=== PATIENT | female | born 1960 | race Caucasian/White ===

== ENCOUNTER 2018-08-08 10:15 | Outpatient (RCR) | payer MEDICAID | END 2018-08-08 11:00 | disposition home or self-care (01) | LOC: PT 10:15 | DX: M54.5 Low back pain (principal) ==

== ENCOUNTER 2018-12-06 08:29 | Inpatient (IN) | payer MEDICAID ==
[~2018-12-06] VITALS: Ht 152.4 cm; Wt 164.0 kg
[2018-12-06 09:38] LABS: EOS # 0.2 (0.04-0.40); EOS % 1.8 % (1.0-5.0); HEMATOCRIT 35.2 % (37.0-47.0); HEMOGLOBIN 10.1 g/dL (12.5-16.0); LYMPH# 1.9 (1.50-4.00); MEAN CELL VOLUME 89 fl (78-100); MEAN CORPUSCULAR HEMOGLOBIN 26 pg (27-31); MEAN PLATELET VOLUME 10.5 fl (7.4-10.4); MONO # 0.8 (0.20-0.80); PLATELET COUNT 305 K/mm3 (130-400); RED BLOOD COUNT 3.94 M/mm3 (4.10-5.30); RED CELL DISTRIBUTION WIDTH 17.2 % (11.5-14.5); WHITE BLOOD COUNT 12.3 K/mm3 (4.8-10.8)
[2018-12-06 09:40] LABS: CALCIUM 8.7 mg/dL (8.4-10.2); TOTAL PROTEIN 7.5 g/dL (6.3-8.2)
[2018-12-06 09:41] LABS: ALBUMIN 3.9 g/dL (3.5-5.0); TOTAL BILIRUBIN 0.3 mg/dL (0.2-1.3)
[2018-12-06 09:42] LABS: MEAN CORPUSCULAR HGB CONC 29 g/dL (33-37); NEU # 9.3 (1.40-6.50)
[2018-12-06 09:45] LABS: D-DIMER 0.18 mg/L FEU (0.15-0.50)
[2018-12-06 09:46] LABS: TROPONIN-I 0.01 ng/mL (0.00-0.06)
[2018-12-06 10:37] LABS: URINE APPEARANCE HAZY; URINE COLOR YELLOW
[2018-12-06 10:38] LABS: URINE BILIRUBIN NEGATIVE (NEGATIVE); URINE BLOOD NEGATIVE (NEGATIVE); URINE GLUCOSE NEGATIVE (NEGATIVE); URINE KETONE NEGATIVE (NEGATIVE); URINE LEUKOCYTE ESTERASE NEGATIVE (NEGATIVE); URINE NITRATE NEGATIVE (NEGATIVE); URINE PROTEIN(semi-quant) TRACE mg/dL (NEGATIVE); URINE UROBILINOGEN NORMAL (NORMAL)
[2018-12-06] MEDS ORDERED: WELLBUTRIN XL300 M1 PO (10:52)
[2018-12-06] MEDS ORDERED: ZOLPIDEM TART10 MG PO (10:52)
[2018-12-06] MEDS ORDERED: GLUCOPHAGE PO (10:53)
[2018-12-06] MEDS ORDERED: KLONOPIN 0.5MG0.5 MG PO (10:53)
[2018-12-06] MEDS ORDERED: QUETIAPINE FUM100 M1 PO (10:53)
[2018-12-06] MEDS ORDERED: LIOTHYRONINE SO5 MCG PO (10:53)
[2018-12-06] MEDS ORDERED: DULOXETINE60 MG PO (10:54)
[2018-12-06 18:59] VITALS: BP 143/85
[2018-12-06 23:30] VITALS: BP 144/86
[2018-12-07 03:03] VITALS: BP 132/93
[2018-12-07 06:24] VITALS: BP 115/71
[2018-12-07 11:18] VITALS: BP 124/82
[2018-12-07 15:33] VITALS: BP 120/76
[2018-12-07 17:57] LABS: CALCIUM 8.7 mg/dL (8.4-10.2); POTASSIUM 3.7 mmol/L (3.6-5.0)
[2018-12-07 18:31] VITALS: BP 135/78
[2018-12-07 22:54] VITALS: BP 137/82
[2018-12-08 03:30] VITALS: BP 125/78
[2018-12-08 06:10] VITALS: BP 128/81
[2018-12-08 11:02] VITALS: BP 145/82
[2018-12-08 15:16] VITALS: BP 154/77
[2018-12-08 18:24] VITALS: BP 130/68
[2018-12-08 22:36] VITALS: BP 116/68
[2018-12-09 02:37] VITALS: BP 147/89
[2018-12-09 06:20] VITALS: BP 127/72
[2018-12-09 07:24] LABS: ALBUMIN 4.1 g/dL (3.5-5.0); CALCIUM 8.5 mg/dL (8.4-10.2); POTASSIUM 3.6 mmol/L (3.6-5.0); TOTAL BILIRUBIN 0.4 mg/dL (0.2-1.3); TOTAL PROTEIN 7.7 g/dL (6.3-8.2)
[2018-12-09 08:11] LABS: EOS # 0.2 (0.04-0.40); EOS % 1.9 % (1.0-5.0); HEMATOCRIT 36.8 % (37.0-47.0); HEMOGLOBIN 10.7 g/dL (12.5-16.0); LYMPH# 1.9 (1.50-4.00); MEAN CELL VOLUME 89 fl (78-100); MEAN CORPUSCULAR HEMOGLOBIN 26 pg (27-31); MEAN PLATELET VOLUME 10.8 fl (7.4-10.4); MONO # 0.7 (0.20-0.80); NEU # 6.5 (1.40-6.50); PLATELET COUNT 334 K/mm3 (130-400); RED BLOOD COUNT 4.12 M/mm3 (4.10-5.30); RED CELL DISTRIBUTION WIDTH 16.7 % (11.5-14.5); WHITE BLOOD COUNT 9.5 K/mm3 (4.8-10.8)
[2018-12-09 08:13] LABS: MEAN CORPUSCULAR HGB CONC 29 g/dL (33-37)
[2018-12-09 11:00] VITALS: BP 138/75
[2018-12-09 15:00] VITALS: BP 121/65
== END 2018-12-09 15:40 | disposition swing bed (61) | DRG 189 ==
LOC: ED 08:29 → MED/SURG 18:00 → ED 18:00 → MED/SURG 18:00
PROVIDERS: Internal Medicine; ADMIT Family Medicine
DX: J96.21 Acute and chronic respiratory failure with hypoxia (principal); E66.2 Morbid (severe) obesity with alveolar hypoventilation; Z68.45 Body mass index [BMI] 70 or greater, adult; J96.22 Acute and chronic respiratory failure with hypercapnia; E88.81 Metabolic syndrome and other insulin resistance; F41.9 Anxiety disorder, unspecified
CPT/HCPCS: A9270-GY; J0595; J1650; J1885; J1940; J2060; J2405; J2765

== ENCOUNTER 2018-12-09 15:40 | Inpatient (IN) | payer MEDICAID ==
[~2018-12-09] VITALS: Ht 152.4 cm; Wt 162.6 kg
[~2018-12-09 15:40] MED LIST: DULOXETINE60 MG PO; GLUCOPHAGE PO; KLONOPIN 0.5MG0.5 MG PO; LIOTHYRONINE SO5 MCG PO; QUETIAPINE FUM100 M1 PO; WELLBUTRIN XL300 M1 PO; ZOLPIDEM TART10 MG PO
[2018-12-09 16:13] VITALS: BP 121/65
[2018-12-09 19:03] VITALS: BP 162/92
[2018-12-10 06:16] VITALS: BP 144/77
[2018-12-10 06:59] LABS: CALCIUM 8.6 mg/dL (8.4-10.2); POTASSIUM 3.5 mmol/L (3.6-5.0); TOTAL BILIRUBIN 0.4 mg/dL (0.2-1.3); TOTAL PROTEIN 7.4 g/dL (6.3-8.2)
[2018-12-10 07:04] LABS: BASO # 0.1 (0.02-0.10); EOS # 0.2 (0.04-0.40); EOS % 2.2 % (1.0-5.0); HEMATOCRIT 36.7 % (37.0-47.0); HEMOGLOBIN 10.9 g/dL (12.5-16.0); LYMPH# 2.1 (1.50-4.00); MEAN CELL VOLUME 89 fl (78-100); MEAN CORPUSCULAR HEMOGLOBIN 26 pg (27-31); MEAN CORPUSCULAR HGB CONC 30 g/dL (33-37); MEAN PLATELET VOLUME 10.7 fl (7.4-10.4); MONO # 0.7 (0.20-0.80); NEU # 6.9 (1.40-6.50); PLATELET COUNT 279 K/mm3 (130-400); RED BLOOD COUNT 4.14 M/mm3 (4.10-5.30); RED CELL DISTRIBUTION WIDTH 16.9 % (11.5-14.5)
[2018-12-10 18:37] VITALS: BP 112/58
[2018-12-11 06:05] VITALS: BP 129/84
[2018-12-11 18:07] VITALS: BP 158/91
[2018-12-12 06:36] VITALS: BP 125/79
[2018-12-12 18:42] VITALS: BP 150/77
[2018-12-13 06:20] VITALS: BP 127/74
[2018-12-13 18:10] VITALS: BP 136/87
[2018-12-14 06:20] VITALS: BP 111/65
[2018-12-14 18:04] VITALS: BP 115/76
[2018-12-14 18:52] LABS: URINE APPEARANCE HAZY; URINE BILIRUBIN NEGATIVE (NEGATIVE); URINE BLOOD NEGATIVE (NEGATIVE); URINE COLOR YELLOW; URINE GLUCOSE NEGATIVE (NEGATIVE); URINE KETONE NEGATIVE (NEGATIVE); URINE LEUKOCYTE ESTERASE NEGATIVE (NEGATIVE); URINE NITRATE NEGATIVE (NEGATIVE); URINE PROTEIN(semi-quant) NEGATIVE (NEGATIVE); URINE UROBILINOGEN NORMAL (NORMAL); URINE WBC 0-1 /hpf (0-3)
[2018-12-15 06:17] VITALS: BP 139/76
[2018-12-15 07:35] LABS: ALBUMIN 3.9 g/dL (3.5-5.0); POTASSIUM 4.2 mmol/L (3.6-5.0); TOTAL BILIRUBIN 0.4 mg/dL (0.2-1.3); TOTAL PROTEIN 7.7 g/dL (6.3-8.2)
[2018-12-15 07:38] LABS: EOS # 0.2 (0.04-0.40); EOS % 1.5 % (1.0-5.0); HEMATOCRIT 33.1 % (37.0-47.0); HEMOGLOBIN 9.7 g/dL (12.5-16.0); LYMPH# 1.7 (1.50-4.00); MEAN CELL VOLUME 89 fl (78-100); MEAN CORPUSCULAR HEMOGLOBIN 26 pg (27-31); MEAN PLATELET VOLUME 10.9 fl (7.4-10.4); MONO # 0.8 (0.20-0.80); NEU # 7.4 (1.40-6.50); PLATELET COUNT 255 K/mm3 (130-400); RED BLOOD COUNT 3.74 M/mm3 (4.10-5.30); RED CELL DISTRIBUTION WIDTH 17.5 % (11.5-14.5); WHITE BLOOD COUNT 10.2 K/mm3 (4.8-10.8)
[2018-12-15 08:00] LABS: MEAN CORPUSCULAR HGB CONC 29 g/dL (33-37)
[2018-12-15 18:08] VITALS: BP 117/71
[2018-12-16 06:35] VITALS: BP 132/80
[2018-12-16 19:09] VITALS: BP 121/62
[2018-12-17 06:07] VITALS: BP 124/79
[2018-12-17 18:14] VITALS: BP 134/88
[2018-12-18 06:22] VITALS: BP 121/78
[2018-12-18 18:42] VITALS: BP 109/62
[2018-12-19 06:26] VITALS: BP 108/67
[2018-12-19] MEDS ORDERED: KLONOPIN 1MG1 MG PO (07:46)
[2018-12-19] MEDS ORDERED: PHENTERMINE H37.5 M2 PO (07:47)
[2018-12-19] MEDS ORDERED: GLUCOPHAGE PO (07:48)
== END 2018-12-19 09:40 | disposition home health service (06) | DRG 947 ==
LOC: MED/SURG 15:40
PROVIDERS: Family Medicine; ADMIT Nurse Practitioner Primary Care
DX: R53.81 Other malaise (principal); G92 Toxic encephalopathy; J96.11 Chronic respiratory failure with hypoxia; Z68.45 Body mass index [BMI] 70 or greater, adult; E66.01 Morbid (severe) obesity due to excess calories; F41.1 Generalized anxiety disorder; G47.33 Obstructive sleep apnea (adult) (pediatric); T43.595A Adverse effect of other antipsychotics and neuroleptics, initial encounter; E11.9 Type 2 diabetes mellitus without complications; Z87.891 Personal history of nicotine dependence; Z99.81 Dependence on supplemental oxygen
CPT/HCPCS: A9270-GY; J1650

== ENCOUNTER → 2018-12-26 | Outpatient (CLI) | payer MEDICAID ==
[2018-12-19 06:26] VITALS: BP 108/67
[~2018-12-26] MED LIST changes: +KLONOPIN 1MG1 MG PO; +PHENTERMINE H37.5 M2 PO
[2018-12-26 15:14] LABS: EOS # 0.2 (0.04-0.40); EOS % 1.5 % (1.0-5.0); HEMATOCRIT 37.1 % (37.0-47.0); HEMOGLOBIN 10.9 g/dL (12.5-16.0); LYMPH# 2.2 (1.50-4.00); MEAN CELL VOLUME 87 fl (78-100); MEAN CORPUSCULAR HEMOGLOBIN 25 pg (27-31); MEAN PLATELET VOLUME 11.2 fl (7.4-10.4); MONO # 0.7 (0.20-0.80); NEU # 7.5 (1.40-6.50); PLATELET COUNT 325 K/mm3 (130-400); RED BLOOD COUNT 4.29 M/mm3 (4.10-5.30); WHITE BLOOD COUNT 10.5 K/mm3 (4.8-10.8)
[2018-12-26 15:17] LABS: ALBUMIN 4.4 g/dL (3.5-5.0); CALCIUM 9.7 mg/dL (8.4-10.2); POTASSIUM 4.1 mmol/L (3.6-5.0); TOTAL BILIRUBIN 0.5 mg/dL (0.2-1.3); TOTAL PROTEIN 7.8 g/dL (6.3-8.2)
[2018-12-26 15:22] LABS: MEAN CORPUSCULAR HGB CONC 29 g/dL (33-37)
== END ==
LOC: LAB 14:23
PROVIDERS: Internal Medicine
DX: E11.9 Type 2 diabetes mellitus without complications (principal); K90.9 Intestinal malabsorption, unspecified; D63.8 Anemia in other chronic diseases classified elsewhere

== ENCOUNTER → 2019-03-02 | Outpatient (CLI) | payer MEDICAID ==
[2019-03-02 11:03] LABS: URINE APPEARANCE CLEAR; URINE BILIRUBIN NEGATIVE (NEGATIVE); URINE BLOOD NEGATIVE (NEGATIVE); URINE COLOR YELLOW; URINE GLUCOSE NEGATIVE (NEGATIVE); URINE KETONE SMALL (NEGATIVE); URINE LEUKOCYTE ESTERASE NEGATIVE (NEGATIVE); URINE NITRATE NEGATIVE (NEGATIVE); URINE PROTEIN(semi-quant) NEGATIVE (NEGATIVE); URINE UROBILINOGEN NORMAL (NORMAL)
[2019-03-02 22:11] LABS: CREATININE OTHER SOURCE 53 mg/dL (())
== END ==
LOC: LAB 09:36
PROVIDERS: Internal Medicine
DX: E11.9 Type 2 diabetes mellitus without complications (principal); K90.9 Intestinal malabsorption, unspecified

== ENCOUNTER → 2019-06-26 | Outpatient (CLI) | payer MEDICAID ==
[2019-06-26 09:51] LABS: ALBUMIN 4.1 g/dL (3.5-5.0); POTASSIUM 4.3 mmol/L (3.5-5.1)
[2019-06-26 09:52] LABS: CALCIUM 9.5 mg/dL (8.3-10.5)
[2019-06-26 09:54] LABS: TOTAL PROTEIN 8.4 g/dL (6.4-8.3)
[2019-06-26 09:55] LABS: TOTAL BILIRUBIN 0.3 mg/dL (0.2-1.2)
[2019-06-26 09:58] LABS: BASO # 0.1 (0.02-0.10); EOS # 0.2 (0.04-0.40); EOS % 1.8 % (1.0-5.0); HEMATOCRIT 41.3 % (37.0-47.0); HEMOGLOBIN 12.9 g/dL (12.5-16.0); LYMPH# 3.1 (1.50-4.00); MEAN CELL VOLUME 93 fl (78-100); MEAN CORPUSCULAR HEMOGLOBIN 29 pg (27-31); MEAN CORPUSCULAR HGB CONC 31 g/dL (33-37); MEAN PLATELET VOLUME 10.8 fl (7.4-10.4); MONO # 0.8 (0.20-0.80); NEU # 8.1 (1.40-6.50); PLATELET COUNT 317 K/mm3 (130-400); RED BLOOD COUNT 4.42 M/mm3 (4.10-5.30); RED CELL DISTRIBUTION WIDTH 15.6 % (11.5-14.5); WHITE BLOOD COUNT 12.3 K/mm3 (4.8-10.8)
== END ==
LOC: LAB 09:26
PROVIDERS: Internal Medicine
DX: E11.9 Type 2 diabetes mellitus without complications (principal); D64.9 Anemia, unspecified; K90.9 Intestinal malabsorption, unspecified

== ENCOUNTER → 2019-07-10 | Outpatient (CLI) | payer MEDICAID ==
[~2019-07-10] VITALS: Ht 152.4 cm; Wt 134.2 kg
[~2019-07-10] MED LIST changes: +SYNTHROID0.05 MG PO
[2019-07-10 10:55] VITALS: BP 128/72
[2019-07-10 11:17] LABS: URINE APPEARANCE HAZY; URINE BILIRUBIN NEGATIVE (NEGATIVE); URINE BLOOD NEGATIVE (NEGATIVE); URINE COLOR YELLOW; URINE GLUCOSE NEGATIVE (NEGATIVE); URINE KETONE NEGATIVE (NEGATIVE); URINE LEUKOCYTE ESTERASE NEGATIVE (NEGATIVE); URINE MUCUS NOT PRESENT (NOT PRESENT); URINE NITRATE NEGATIVE (NEGATIVE); URINE PROTEIN(semi-quant) TRACE mg/dL (NEGATIVE); URINE UROBILINOGEN NORMAL (NORMAL); URINE WBC 0-1 /hpf (0-3)
== END ==
LOC: AMSURD 10:23 → LAB 10:23
PROVIDERS: Internal Medicine
DX: Z01.818 Encounter for other preprocedural examination (principal); E66.01 Morbid (severe) obesity due to excess calories

== ENCOUNTER → 2019-07-13 | Outpatient (CLI) | payer MEDICAID ==
[2019-07-10 10:55] VITALS: BP 128/72
[2019-07-13 13:23] LABS: URINE APPEARANCE CLEAR; URINE COLOR YELLOW
[2019-07-13 13:24] LABS: URINE BILIRUBIN NEGATIVE (NEGATIVE); URINE BLOOD NEGATIVE (NEGATIVE); URINE GLUCOSE NEGATIVE (NEGATIVE); URINE KETONE NEGATIVE (NEGATIVE); URINE LEUKOCYTE ESTERASE NEGATIVE (NEGATIVE); URINE NITRATE NEGATIVE (NEGATIVE); URINE PROTEIN(semi-quant) NEGATIVE (NEGATIVE); URINE UROBILINOGEN NORMAL (NORMAL); URINE WBC 0-1 /hpf (0-3)
== END ==
LOC: LAB 09:26
PROVIDERS: Internal Medicine
DX: Z01.818 Encounter for other preprocedural examination (principal); E66.01 Morbid (severe) obesity due to excess calories

== ENCOUNTER 2019-11-05 09:09 | Emergency (ER) | payer MEDICAID ==
[2019-07-10 10:55] VITALS: BP 128/72
== END 2019-11-05 09:18 | disposition left against medical advice (07) ==
LOC: ED 09:09
DX: R45.1 Restlessness and agitation (principal)

== ENCOUNTER 2020-01-05 16:54 | Emergency (ER) | payer MEDICARE, MEDICAID ==
[~2020-01-05 16:54] MED LIST changes: -DOXYCYCLINE MO100 M3 PO; -HYDROXYZINE HCL25 M1 PO; -PRILOSEC OTC20 MG PO; -SEROQUEL 1100 MG/TAB PO
[2020-01-05 17:41] LABS: BASO # 0.1 (0.02-0.10); EOS # 0.2 (0.04-0.40); EOS % 2.2 % (1.0-5.0); HEMOGLOBIN 12.9 g/dL (12.5-16.0); LYMPH# 4.5 (1.50-4.00); MEAN CELL VOLUME 94 fl (78-100); MEAN CORPUSCULAR HEMOGLOBIN 30 pg (27-31); MEAN CORPUSCULAR HGB CONC 32 g/dL (33-37); MEAN PLATELET VOLUME 10.6 fl (7.4-10.4); MONO # 0.6 (0.20-0.80); NEU # 5.6 (1.40-6.50); PLATELET COUNT 267 K/mm3 (130-400); RED BLOOD COUNT 4.36 M/mm3 (4.10-5.30); RED CELL DISTRIBUTION WIDTH 14.3 % (11.5-14.5)
[2020-01-05 17:48] LABS: ALBUMIN 3.8 g/dL (3.5-5.0)
[2020-01-05 17:49] LABS: SODIUM 140 mmol/L (136-145)
[2020-01-05 17:50] LABS: CALCIUM 9.8 mg/dL (8.3-10.5)
[2020-01-05 17:51] LABS: GLUCOSE 85 mg/dL (65-105); TOTAL PROTEIN 7.4 g/dL (6.4-8.3)
[2020-01-05 17:52] LABS: CARBON DIOXIDE 25 mmol/L (22-29)
[2020-01-05 17:53] LABS: TOTAL BILIRUBIN 0.4 mg/dL (0.2-1.2)
[2020-01-05 17:55] LABS: ALCOHOL IN-HOUSE < 10 mg/dL (<10)
[2020-01-05] MEDS ORDERED: KLONOPIN 1MG1 MG PO (17:55)
[2020-01-05 17:56] LABS: AST-SGOT 19 U/L (5-34)
[2020-01-05 17:58] LABS: ALT/SGPT 33 U/L (0-55)
[2020-01-05] MEDS ORDERED: HYDROXYZINE HCL25 M1 PO (17:59)
[2020-01-05 18:00] LABS: ACETAMINOPHEN < 1 ug/mL
[2020-01-06] MEDS ORDERED: SEROQUEL 1100 MG/TAB PO (05:54)
[2020-01-06] MEDS ORDERED: PRILOSEC OTC20 MG PO (05:55)
[2020-01-06] MEDS ORDERED: DOXYCYCLINE MO100 M3 PO (05:56)
[2020-01-06 09:28] VITALS: BP 124/86
== END 2020-01-06 09:56 ==
LOC: ED 16:54
PROVIDERS: Nurse Practitioner Family
DX: T42.4X2A Poisoning by benzodiazepines, intentional self-harm, initial encounter (principal); G47.33 Obstructive sleep apnea (adult) (pediatric); F32.9 Major depressive disorder, single episode, unspecified; F41.0 Panic disorder [episodic paroxysmal anxiety]; F43.10 Post-traumatic stress disorder, unspecified; Z87.891 Personal history of nicotine dependence

== ENCOUNTER → 2020-01-05 | Outpatient (CLI) | payer MEDICARE, MEDICAID ==
[2019-07-10 10:55] VITALS: BP 128/72
[~2020-01-05] MED LIST changes: +DOXYCYCLINE MO100 M3 PO; +HYDROXYZINE HCL25 M1 PO; +PRILOSEC OTC20 MG PO; +SEROQUEL 1100 MG/TAB PO
== END ==
LOC: RAD 16:13
DX: R05 Cough (principal)

== ENCOUNTER → 2020-02-17 | Outpatient (CLI) | payer MEDICARE, MEDICAID ==
[~2020-02-17] MED LIST changes: +DOXYCYCLINE MO100 M3 PO; +HYDROXYZINE HCL25 M1 PO; +PRILOSEC OTC20 MG PO; +SEROQUEL 1100 MG/TAB PO
== END ==
LOC: LAB 14:01
DX: R05 Cough (principal); R06.02 Shortness of breath

== ENCOUNTER → 2020-05-18 | Outpatient (CLI) | payer MEDICARE, MEDICAID | LOC: LAB 09:53 | DX: J02.9 Acute pharyngitis, unspecified (principal); R19.7 Diarrhea, unspecified; Z20.828 Contact with and (suspected) exposure to other viral communicable diseases ==

== ENCOUNTER 2020-05-23 21:05 | Emergency (ER) | payer MEDICARE, MEDICAID ==
[~2020-05-23] VITALS: Ht 157.5 cm; Wt 131.8 kg
[2020-05-23] MEDS ORDERED: BUSPIRONE HYDRO10 MG PO (21:21)
[2020-05-23] MEDS ORDERED: REMERON15 MG PO (21:22)
[2020-05-23 22:12] LABS: BASO # 0.1 (0.02-0.10); EOS # 0.2 (0.04-0.40); EOS % 1.5 % (1.0-5.0); HEMATOCRIT 35.8 % (37.0-47.0); HEMOGLOBIN 11.3 g/dL (12.5-16.0); LYMPH# 2.9 (1.50-4.00); MEAN CELL VOLUME 93 fl (78-100); MEAN CORPUSCULAR HEMOGLOBIN 29 pg (27-31); MEAN CORPUSCULAR HGB CONC 32 g/dL (33-37); MONO # 0.8 (0.20-0.80); NEU # 8.8 (1.40-6.50); PLATELET COUNT 274 K/mm3 (130-400); RED BLOOD COUNT 3.84 M/mm3 (4.10-5.30); RED CELL DISTRIBUTION WIDTH 13.5 % (11.5-14.5); WHITE BLOOD COUNT 12.8 K/mm3 (4.8-10.8)
[2020-05-23 22:20] LABS: ALBUMIN 3.6 g/dL (3.5-5.0)
[2020-05-23 22:21] LABS: POTASSIUM 4.1 mmol/L (3.5-5.1)
[2020-05-23 22:22] LABS: CALCIUM 8.3 mg/dL (8.3-10.5)
[2020-05-23 22:23] LABS: TOTAL PROTEIN 7.2 g/dL (6.4-8.3)
[2020-05-23 22:25] LABS: TOTAL BILIRUBIN 0.4 mg/dL (0.2-1.2)
[2020-05-23] MEDS ORDERED: AZITHROMYCIN 250MGPK PO (22:45)
[2020-05-23] MEDS ORDERED: PREDNISONE20 M1 PO (22:45)
[2020-05-23 23:15] VITALS: BP 136/96
== END 2020-05-23 23:15 | disposition home or self-care (01) ==
LOC: ED 21:05
PROVIDERS: Nurse Practitioner
DX: J40 Bronchitis, not specified as acute or chronic (principal); F41.0 Panic disorder [episodic paroxysmal anxiety]; E66.9 Obesity, unspecified; F32.9 Major depressive disorder, single episode, unspecified; F43.10 Post-traumatic stress disorder, unspecified; Z87.891 Personal history of nicotine dependence; Z20.828 Contact with and (suspected) exposure to other viral communicable diseases

== ENCOUNTER → 2020-09-02 | Outpatient (CLI) | payer MEDICARE, MEDICAID ==
[2020-06-15 15:13] VITALS: BP 100/55
[~2020-09-02] MED LIST changes: +AZITHROMYCIN 250MGPK PO; +BUSPAR 15MG TAB15 MG PO; +BUSPIRONE HYDRO10 MG PO; +CETIRIZINE HCL10 MG PO; +HYDROXYZINE HYD50 M1 PO; +PEPCID AC20 M2 PO; +PREDNISONE20 M1 PO; +REMERON15 MG PO
== END ==
LOC: LAB 10:27
DX: M79.10 Myalgia, unspecified site (principal); R51.9 Headache, unspecified; Z20.828 Contact with and (suspected) exposure to other viral communicable diseases

== ENCOUNTER → 2020-09-20 | Outpatient (CLI) | payer MEDICARE, MEDICAID ==
[2020-09-04 19:32] VITALS: BP 124/86
== END ==
LOC: MAMMO 09-06 09:15
DX: Z12.31 Encounter for screening mammogram for malignant neoplasm of breast (principal)

== ENCOUNTER 2020-10-03 14:12 | Emergency (ER) | payer MEDICARE, MEDICAID ==
[2020-10-03 14:20] VITALS: BP 140/94
[2020-10-03 16:10] LABS: URINE APPEARANCE CLEAR; URINE BILIRUBIN NEGATIVE (NEGATIVE); URINE BLOOD NEGATIVE (NEGATIVE); URINE COLOR YELLOW; URINE GLUCOSE NEGATIVE (NEGATIVE); URINE KETONE NEGATIVE (NEGATIVE); URINE LEUKOCYTE ESTERASE NEGATIVE (NEGATIVE); URINE NITRATE NEGATIVE (NEGATIVE); URINE PROTEIN(semi-quant) TRACE mg/dL (NEGATIVE); URINE UROBILINOGEN NORMAL (NORMAL)
[2020-10-03 16:11] LABS: URINE MUCUS PRESENT (NOT PRESENT)
== END 2020-10-03 15:26 | disposition left against medical advice (07) ==
LOC: ED 14:12
PROVIDERS: Physician Assistant
DX: R42 Dizziness and giddiness (principal); H93.13 Tinnitus, bilateral; Z53.21 Procedure and treatment not carried out due to patient leaving prior to being seen by health care provider; Z88.0 Allergy status to penicillin; Z88.2 Allergy status to sulfonamides

== ENCOUNTER 2024-05-21 12:58 | Outpatient (RCR) | payer MEDICARE | END 2024-06-03 | disposition home or self-care (01) | LOC: PT | DX: M79.604 Pain in right leg (principal); M79.605 Pain in left leg ==

== ENCOUNTER 2024-06-05 13:00 | Outpatient (RCR) | payer MEDICARE ==
[2024-09-07] MEDS ORDERED: TIZANIDINE2 MG PO (17:09)
[2024-09-15] MEDS ORDERED: PAXLOVID 300-11 EACH PO (11:11)
== END 2024-07-03 16:03 | disposition home or self-care (01) ==
LOC: PT 13:00
DX: M79.604 Pain in right leg (principal); M79.605 Pain in left leg

== ENCOUNTER → 2024-07-07 | Outpatient (CLI) | payer MEDICARE | LOC: RAD 10:22 | DX: M47.812 Spondylosis without myelopathy or radiculopathy, cervical region (principal); M19.011 Primary osteoarthritis, right shoulder; M25.512 Pain in left shoulder ==

== ENCOUNTER 2024-09-04 09:07 | Emergency (ER) | payer MEDICARE ==
[~2024-09-04] VITALS: Ht 152.4 cm; Wt 150.8 kg
[2024-09-04 09:40] LABS: BASO # 0.04 K/mm3 (0.02-0.10); EOS # 0.22 K/mm3 (0.04-0.40); EOS % 2.3 % (1.0-5.0); HEMATOCRIT 37.6 % (37.0-47.0); HEMOGLOBIN 12.1 g/dL (12.5-16.0); LYMPH# 1.93 K/mm3 (1.50-4.00); MEAN CELL VOLUME 91 fl (78-100); MEAN CORPUSCULAR HEMOGLOBIN 29 pg (27-31); MEAN CORPUSCULAR HGB CONC 32 g/dL (33-37); MEAN PLATELET VOLUME 11.3 fl (7.4-10.4); MONO # 0.56 K/mm3 (0.20-0.80); NEU # 6.72 K/mm3 (1.40-6.50); PLATELET COUNT 161 K/mm3 (130-400); RED BLOOD COUNT 4.13 M/mm3 (4.10-5.30); RED CELL DISTRIBUTION WIDTH 14.8 % (11.5-14.5); WHITE BLOOD COUNT 9.5 K/mm3 (4.8-10.8)
[2024-09-04 09:46] LABS: ALBUMIN 3.6 g/dL (3.4-4.8)
[2024-09-04 09:47] LABS: CALCIUM 9.1 mg/dL (8.3-10.5)
[2024-09-04 09:50] LABS: TOTAL BILIRUBIN 0.3 mg/dL (0.2-1.2)
[2024-09-04] MEDS ORDERED: Ketorolac 30 MG/ML VIAL IV ONE (10:15)
[2024-09-04 10:36] LABS: PH-URINE 5.5 (5.0 - 8.0); URINE APPEARANCE CLEAR (CLEAR); URINE BILIRUBIN NEGATIVE (NEGATIVE); URINE BLOOD NEGATIVE (NEGATIVE); URINE COLOR YELLOW (YELLOW); URINE GLUCOSE NEGATIVE (NEGATIVE); URINE KETONE NEGATIVE (NEGATIVE); URINE LEUKOCYTE ESTERASE NEGATIVE (NEGATIVE); URINE NITRATE NEGATIVE (NEGATIVE); URINE PROTEIN(semi-quant) NEGATIVE (NEGATIVE); URINE WBC 0-1 /hpf (0-3)
[2024-09-04] MEDS ORDERED: Acetaminophen 500 MG TAB PO ONE (11:00)
[2024-09-04] MEDS ORDERED: CYCLOBENZAPRINE10 M1 PO (11:06)
[2024-09-04 11:31] VITALS: BP 112/69
[2024-09-07] MEDS ORDERED: TIZANIDINE2 MG PO (17:09)
== END 2024-09-04 11:28 | disposition home or self-care (01) ==
LOC: ED 09:07
PROVIDERS: Family Medicine
DX: M54.2 Cervicalgia (principal); M25.571 Pain in right ankle and joints of right foot; M25.551 Pain in right hip; M25.561 Pain in right knee; M25.511 Pain in right shoulder; H53.8 Other visual disturbances; R51.9 Headache, unspecified; E66.01 Morbid (severe) obesity due to excess calories; E86.0 Dehydration; Z87.891 Personal history of nicotine dependence; W19.XXXA Unspecified fall, initial encounter
CPT/HCPCS: J1885; J7120

== ENCOUNTER 2024-12-03 15:20 | Emergency (ER) | payer MEDICARE ==
[~2024-12-03] VITALS: Ht 157.5 cm; Wt 150.9 kg
[~2024-12-03 15:20] MED LIST changes: +CYCLOBENZAPRINE10 M1 PO; +PAXLOVID 300-11 EACH PO; +TIZANIDINE2 MG PO
[2024-12-03 16:06] LABS: BASO # 0.05 K/mm3 (0.02-0.10); EOS # 0.17 K/mm3 (0.04-0.40); EOS % 1.7 % (1.0-5.0); HEMATOCRIT 40.5 % (37.0-47.0); HEMOGLOBIN 12.5 g/dL (12.5-16.0); LYMPH# 2.92 K/mm3 (1.50-4.00); MEAN CELL VOLUME 94 fl (78-100); MEAN CORPUSCULAR HEMOGLOBIN 29 pg (27-31); MEAN CORPUSCULAR HGB CONC 31 g/dL (33-37); MEAN PLATELET VOLUME 11.1 fl (7.4-10.4); MONO # 0.58 K/mm3 (0.20-0.80); NEU # 6.34 K/mm3 (1.40-6.50); PLATELET COUNT 258 K/mm3 (130-400); RED BLOOD COUNT 4.32 M/mm3 (4.10-5.30); RED CELL DISTRIBUTION WIDTH 15.7 % (11.5-14.5); WHITE BLOOD COUNT 10.1 K/mm3 (4.8-10.8)
[2024-12-03] MEDS ORDERED: MELOXICAM15 MG PO (16:11)
[2024-12-03] MEDS ORDERED: FAMOTIDINE20 MG PO (16:13)
[2024-12-03] MEDS ORDERED: PREGABALIN225 MG PO (16:15)
[2024-12-03 16:19] LABS: SODIUM 141 mmol/L (136-145)
[2024-12-03 16:20] LABS: CALCIUM 9.5 mg/dL (8.3-10.5)
[2024-12-03 16:21] LABS: GLUCOSE 87 mg/dL (65-105); TOTAL PROTEIN 7.7 g/dL (6.2-8.1)
[2024-12-03 16:22] LABS: CARBON DIOXIDE 25 mmol/L (23-31)
[2024-12-03 16:23] LABS: TOTAL BILIRUBIN 0.3 mg/dL (0.2-1.2)
[2024-12-03 16:25] LABS: ALCOHOL IN-HOUSE < 10 mg/dL (<10)
[2024-12-03 16:26] LABS: AST-SGOT 12 U/L (5-34)
[2024-12-03 16:28] LABS: ACETAMINOPHEN < 1.0 ug/mL (< 10.0); ALT/SGPT 12 U/L (0-55)
[2024-12-03 18:21] VITALS: BP 141/74
[2024-12-03 18:51] LABS: URINE APPEARANCE SLIGHTLY CLOUDY (CLEAR); URINE BILIRUBIN NEGATIVE (NEGATIVE); URINE BLOOD NEGATIVE (NEGATIVE); URINE COLOR YELLOW (YELLOW); URINE GLUCOSE NEGATIVE (NEGATIVE); URINE KETONE NEGATIVE (NEGATIVE); URINE LEUKOCYTE ESTERASE NEGATIVE (NEGATIVE); URINE NITRATE NEGATIVE (NEGATIVE); URINE PROTEIN(semi-quant) NEGATIVE (NEGATIVE); URINE WBC 0-1 /hpf (0-3)
[2024-12-03] MEDS ORDERED: Ibuprofen 800 MG TAB PO ONE (21:00)
[2024-12-04 00:20] VITALS: BP 138/76
== END 2024-12-04 00:25 ==
LOC: ED 15:20
PROVIDERS: Family Medicine
DX: R45.851 Suicidal ideations (principal); R32 Unspecified urinary incontinence